=== PATIENT | male | born 1975 | race Caucasian/White ===

== ENCOUNTER → 2017-11-22 | Outpatient (CLI) | payer OTHER | LOC: RAD 16:47 | DX: M77.31 Calcaneal spur, right foot (principal) ==

== ENCOUNTER → 2017-11-24 | Outpatient (CLI) | payer OTHER | LOC: RAD 12:00 | DX: M25.571 Pain in right ankle and joints of right foot (principal) ==

== ENCOUNTER → 2019-04-16 | Outpatient (CLI) | payer BC ==
[2019-04-16 15:12] LABS: ERYTHROCYTE SEDIMENTATION RATE 6 mm/hr (0-15)
[2019-04-16 15:56] LABS: HEMATOCRIT 45.9 % (42.0-52.0); HEMOGLOBIN 15.2 g/dL (13.5-18.0); MEAN CELL VOLUME 84 fl (78-100); MEAN CORPUSCULAR HEMOGLOBIN 28 pg (27-31); MEAN CORPUSCULAR HGB CONC 33 g/dL (33-37); MEAN PLATELET VOLUME 11.6 fl (7.4-10.4); PLATELET COUNT 470 K/mm3 (130-400); RED BLOOD COUNT 5.44 M/mm3 (4.20-5.60); RED CELL DISTRIBUTION WIDTH 13.2 % (11.5-14.5); WHITE BLOOD COUNT 11.6 K/mm3 (4.8-10.8)
[2019-04-16 16:19] LABS: LYMPHOCYTE 41 % (20-51); MONOCYTE 8 % (3-10); NEUTROPHILS 50 % (42-75)
[2019-04-16 18:00] LABS: ALBUMIN 4.3 g/dL (3.5-5.0)
[2019-04-16 18:01] LABS: POTASSIUM 3.9 mmol/L (3.5-5.1)
[2019-04-16 18:02] LABS: CALCIUM 9.9 mg/dL (8.3-10.5)
[2019-04-16 18:03] LABS: TOTAL PROTEIN 7.8 g/dL (6.4-8.3)
[2019-04-16 18:05] LABS: TOTAL BILIRUBIN 0.5 mg/dL (0.2-1.2)
== END ==
LOC: RAD 13:46
PROVIDERS: Family Medicine
DX: E04.9 Nontoxic goiter, unspecified (principal); R59.0 Localized enlarged lymph nodes

== ENCOUNTER → 2019-04-18 | Outpatient (CLI) | payer BC | LOC: LAB 16:05 | DX: E04.9 Nontoxic goiter, unspecified (principal); R73.9 Hyperglycemia, unspecified ==

== ENCOUNTER → 2019-04-19 | Outpatient (CLI) | payer BC ==
[2019-04-19 17:10] LABS: URINE APPEARANCE CLEAR; URINE BILIRUBIN NEGATIVE (NEGATIVE); URINE BLOOD NEGATIVE (NEGATIVE); URINE COLOR LIGHT YELLOW; URINE KETONE NEGATIVE (NEGATIVE); URINE NITRATE NEGATIVE (NEGATIVE); URINE PROTEIN(semi-quant) 1+ mg/dL (NEGATIVE); URINE UROBILINOGEN NORMAL (NORMAL)
[2019-04-19 17:11] LABS: URINE LEUKOCYTE ESTERASE NEGATIVE (NEGATIVE); URINE WBC 0-1 /hpf (0-3)
== END ==
LOC: LAB 15:32
PROVIDERS: Family Medicine
DX: E11.9 Type 2 diabetes mellitus without complications (principal); E04.9 Nontoxic goiter, unspecified

== ENCOUNTER → 2019-04-23 | Outpatient (CLI) | payer BC | LOC: LAB 16:23 | DX: E04.9 Nontoxic goiter, unspecified (principal); E11.9 Type 2 diabetes mellitus without complications ==

== ENCOUNTER → 2019-06-04 | Outpatient (CLI) | payer BC ==
[2019-06-04 10:56] LABS: ALBUMIN 4.3 g/dL (3.5-5.0); POTASSIUM 4.4 mmol/L (3.5-5.1)
[2019-06-04 10:57] LABS: CALCIUM 10.1 mg/dL (8.3-10.5)
== END ==
LOC: LAB 10:40
PROVIDERS: Internal Medicine Endocrinology, Diabetes & Metabolism
DX: E11.65 Type 2 diabetes mellitus with hyperglycemia (principal)

== ENCOUNTER → 2020-11-19 | Outpatient (CLI) | payer BC ==
[2020-11-19 16:47] LABS: ALBUMIN 4.2 g/dL (3.5-5.0); POTASSIUM 4.3 mmol/L (3.5-5.1)
[2020-11-19 16:48] LABS: CALCIUM 9.3 mg/dL (8.3-10.5)
[2020-11-19 16:49] LABS: TOTAL PROTEIN 7.7 g/dL (6.4-8.3)
[2020-11-19 16:51] LABS: TOTAL BILIRUBIN 0.3 mg/dL (0.2-1.2)
== END ==
LOC: LAB 16:21
PROVIDERS: Internal Medicine Endocrinology, Diabetes & Metabolism
DX: E11.65 Type 2 diabetes mellitus with hyperglycemia (principal); E89.0 Postprocedural hypothyroidism; E01.0 Iodine-deficiency related diffuse (endemic) goiter; E55.9 Vitamin D deficiency, unspecified

== ENCOUNTER → 2021-01-07 | Outpatient (CLI) | payer BC | LOC: LAB 16:02 | DX: L02.91 Cutaneous abscess, unspecified (principal) ==

== ENCOUNTER → 2021-05-16 | Outpatient (CLI) | payer BC | LOC: RAD 08:47 | DX: M79.671 Pain in right foot (principal) ==